=== PATIENT | male | born 1935 | race Caucasian/White ===

== ENCOUNTER 2016-07-09 10:42 | Emergency (ER) | payer MEDICARE, OTHER ==
[2016-07-09 11:36] LABS: #Basophils 0.1 thou/uL (0.0-0.2); #Lymphocytes 0.7 thou/uL (1.20-3.40); #Monocytes 0.6 thou/uL (0.11-0.59); #Neutrophils 7.8 thou/uL (1.40-6.50); %Basophils 0.6 % (0.0-1.0); %Eosinophils 0.2 % (0.0-10.0); %Lymphocytes 7.4 % (21.0-51.0); %Monocytes 6.7 % (0.0-10.0); Hematocrit 29.4 % (42.0-52.0); Red Blood Cell (RBC) Count 3.43 mill/uL (4.70-6.10); White Blood Cell (WBC) Count 9.2 thou/uL (4.8-10.8)
[2016-07-09 11:44] LABS: ALT (SGPT) 12 U/L (0-55); AST (SGOT) 11 U/L (5-34); Alkaline Phosphatase 57 U/L (40-150); Anion Gap 16 mmol/L (10-20); BUN (Urea Nitrogen) 52 mg/dL (8.4-25.7); Bilirubin, Total 0.6 mg/dL (0.2-1.2); Calc. Creatinine Clearance 0 mL/min (70-130); Calcium 8.7 mg/dL (7.8-10.44); Carbon Dioxide 24 mmol/L (23-31); Chloride 101 mmol/L (98-107); Estimated GFR-MDRD 16; Globulin 3.2 g/dL (2.4-3.5)
[2016-07-09 11:45] LABS: Troponin I 0.022 ng/mL (< 0.028)
--- NOTE | 2016-07-09 13:24 | CT ---
CT BRAIN WITHOUT CONTRAST: Date: 07/09/16 HISTORY: Right arm numbness since 4:00 this morning. COMPARISON: CT brain dated 04/21/10. FINDINGS: No acute territorial infarct or hemorrhage. No midline shift or mass effect. Bifrontal chronic white matter changes are similar to the comparison exam. No midline shift or mass effect. Calvarium is in tact. Mastoids are clear. IMPRESSION: No acute intracranial abnormality. POS: [facility]
--- NOTE | 2016-07-09 13:27 | RAD ---
AP VIEW OF CHEST: Date: 07/09/16 HISTORY: Right arm numbness since this morning. FINDINGS: Comparison made to previous exam from 02/06/14. AP view of chest demonstrates ectasia of the aorta. The lungs are well aerated. No evidence of activ e intrathoracic disease seen. No evidence of effusions, pneumonia, or pneumothorax seen. IMPRESSION: Unremarkable AP view of chest. POS: [facility]
== END 2016-07-09 12:56 | disposition short-term general hospital (02) ==
LOC: NAV ERS 10:42
DX: G45.9 Transient cerebral ischemic attack, unspecified (principal); I13.0 Hypertensive heart and chronic kidney disease with heart failure and stage 1 through stage 4 chronic kidney disease, or unspecified chronic kidney disease; N18.9 Chronic kidney disease, unspecified; I50.9 Heart failure, unspecified; I73.9 Peripheral vascular disease, unspecified; Z79.82 Long term (current) use of aspirin; Z79.899 Other long term (current) drug therapy
CPT/HCPCS: 70450; 71010; 80053; 82553; 84484; 85025; 93005

== ENCOUNTER 2017-04-19 23:07 | Emergency (ER) | payer MEDICARE, OTHER | END 2017-04-19 23:50 | disposition home or self-care (01) | LOC: NAV ERS 23:07 | DX: J20.9 Acute bronchitis, unspecified (principal); E03.9 Hypothyroidism, unspecified; E78.5 Hyperlipidemia, unspecified; Z86.73 Personal history of transient ischemic attack (TIA), and cerebral infarction without residual deficits; I25.2 Old myocardial infarction; I13.2 Hypertensive heart and chronic kidney disease with heart failure and with stage 5 chronic kidney disease, or end stage renal disease; I50.9 Heart failure, unspecified; N18.6 End stage renal disease; I73.9 Peripheral vascular disease, unspecified; Z79.82 Long term (current) use of aspirin; Z85.828 Personal history of other malignant neoplasm of skin; Z79.899 Other long term (current) drug therapy | CPT/HCPCS: J7620 ==

== ENCOUNTER 2017-11-29 17:06 | Emergency (ER) | payer MEDICARE, OTHER ==
[2017-11-29] MEDS ORDERED: Nitroglycerin 2% Ointment 1 INCH/1 GM Packet ONE (17:21)
[2017-11-29 17:40] LABS: #Basophils 0.1 thou/uL (0.0-0.2); #Eosinphils 0.2 thou/uL (0.0-0.7); #Lymphocytes 1.2 thou/uL (1.20-3.40); #Monocytes 0.7 thou/uL (0.11-0.59); #Neutrophils 7.1 thou/uL (1.40-6.50); %Basophils 0.7 % (0.0-1.0); %Eosinophils 1.9 % (0.0-10.0); %Lymphocytes 12.8 % (21.0-51.0); %Monocytes 7.1 % (0.0-10.0); %Neutrophils 77.6 % (42.0-75.0); Hemoglobin 11.8 g/dL (14.0-18.0); Mean Corpuscular HGB CONC 31.8 g/dL (32.0-36.0); Mean Corpuscular Hemoglobin 30.2 pg (27.0-31.0); Mean Corpuscular Volume 94.9 fL (78.0-98.0); Mean Platelet Volume 7.1 fL (7.4-10.4); Platelet Count 134 thou/uL (130-400); RBC Distribution Width 13.3 % (11.5-14.5); White Blood Cell (WBC) Count 9.2 thou/uL (4.8-10.8)
[2017-11-29 17:56] LABS: ALT (SGPT) 15 U/L (8-55); AST (SGOT) 13 U/L (5-34); Albumin 4.1 g/dL (3.4-4.8); Alkaline Phosphatase 71 U/L (40-150); Anion Gap 18 mmol/L (10-20); BUN (Urea Nitrogen) 40 mg/dL (8.4-25.7); Bilirubin, Total 0.5 mg/dL (0.2-1.2); CK (CPK) 59 U/L (30-200); Calc. Creatinine Clearance 0 mL/min (70-130); Calcium 8.7 mg/dL (7.8-10.44); Carbon Dioxide 20 mmol/L (23-31); Chloride 106 mmol/L (98-107); Estimated GFR-MDRD 16; Globulin 3.2 g/dL (2.4-3.5); Glucose 226 mg/dL (83-110); Lipase 46 U/L (8-78); Potassium 5.6 mmol/L (3.5-5.1); Protein, Total 7.3 g/dL (5.8-8.1); Sodium 138 mmol/L (136-145)
[2017-11-29 17:58] LABS: CKMB 1.5 ng/mL (0-6.6); Troponin I Less than 0.010 ng/mL (< 0.028)
--- NOTE | 2017-11-29 18:16 | RAD ---
SINGLE VIEW OF THE CHEST: 11/29/17 COMPARISON: 07/09/16 HISTORY: Chest pain. FINDINGS: Single view of the chest shows a normal sized cardiomediastinal silhouette. There is no evidence of c onsolidation, mass, or pleural effusion. The bones are unremarkable. IMPRESSION: No evidence of acute cardiopulmonary disease. POS: [facility]
[2017-11-29] MEDS ORDERED: Insulin Regular 300 UNITS/3 ML VIAL ONE (18:34)
== END 2017-11-29 18:55 | disposition short-term general hospital (02) ==
LOC: NAV ERS 17:06
DX: E87.5 Hyperkalemia (principal); E03.9 Hypothyroidism, unspecified; I13.0 Hypertensive heart and chronic kidney disease with heart failure and stage 1 through stage 4 chronic kidney disease, or unspecified chronic kidney disease; I50.9 Heart failure, unspecified; N18.3 Chronic kidney disease, stage 3 (moderate); I25.2 Old myocardial infarction; Z87.891 Personal history of nicotine dependence; Z79.899 Other long term (current) drug therapy; Z79.82 Long term (current) use of aspirin
CPT/HCPCS: 71045; 80053; 82550; 82553; 83690; 84484; 85025; 93005; 96374; J1815

== ENCOUNTER 2017-12-06 17:30 | Inpatient (IN) | payer MEDICARE, MEDICAID ==
[2017-12-06] MEDS ORDERED: Nitroglycerin 0.4 MG TAB (25 Tab Bottle) SL PRN (18:38)
[2017-12-06] MEDS: Carvedilol 3.125 MG TAB PO SCH (21:29)
[2017-12-06] MEDS: hydrALAZINE 25 MG TAB PO SCH (21:29)
[2017-12-06] MEDS: Atorvastatin Calcium 40 MG TAB PO SCH (21:29)
--- NOTE | 2017-12-07 01:02 | HP ---
CHIEF COMPLAINT: Weakness. HISTORY OF PRESENT ILLNESS: The patient is an 82-year-old male with a past medical history of [place], ischemic stroke, hypertension, hyperlipidemia, hypothyroidism, and chronic kidney disease who was initially admitted at [facility] in [place] for chest pain on 11/29/2017. The patient had normal cardiac enzymes and underwent stress testing, which showed no evidence of ischemia. On admission to the hospital, he was noted to have a creatinine of 3.73 and during the course of the hospitalization that trended upwards and peaked at 4.92. It has since been coming down. Nephrology was consulted and the decision was made to place an AV fistula on the patient's left wrist. This was done 2 days ago, but we are not starting dialysis at this time as the patient's renal function is improving. Nephrology wants the patient to follow up with them in approximately 1 week. During the course of the hospitalization , the patient also was noted to have several different arrhythmias and Cardiology was consulted, who recommended medical management with beta blockers. The patient became deconditioned while in the hospital and lives alone, and he did not feel that he will be able to take care of himself at his home at this time. He has been transferred to [place] for further rehabilitation before going home. Today, the patient denies any pain from his recent AV fistula surgery. The patient denies chest pain, shortness of breath, blurry vision; and is in good spirits. PAST MEDICAL HISTORY: 1. History of myocardial infarction. 2. Ischemic stroke 1 year ago. 3. CKD. 4. Hypertension. 5. Hyperlipidemia. 6. Hypothyroidism. PAST SURGICAL HISTORY: 1. Carotid endarterectomy. 2. Skin cancer surgery. 3. Orthopedic surgery on his right hand. 4. AV fistula placement on the left wrist. ALLERGIES: No known drug allergies. MEDICATIONS: 1. Nitroglycerin 0.4 mg sublingual q.5 minutes p.r.n. chest pain. 2. Aspirin 81 mg p.o. daily. 3. Lasix 20 mg p.o. daily. 4. Lipitor 40 mg p.o. at bedtime. 5. Levothyroxine 175 mcg p.o. q.a.m. 6. Hydralazine 100 mg p.o. b.i.d. 7. Carvedilol 3.125 mg p.o. b.i.d. SOCIAL HISTORY: The patient lives alone and is a nonsmoker, but has a history of former smoking and quit 10 years ago. FAMILY HISTORY: Mother of an [place]. REVIEW OF SYSTEMS: General: Negative for fever or chills. Eyes: Negative for vision changes or eye pain. ENT: Negative for nasal congestion, rhinorrhea, or sore throat. Cardiovascular: Negative for chest pain, palpitations, orthopnea, or PND. Respiratory: Negative for cough, shortness of breath, or wheezing. Gastrointestinal: Negative for nausea, vomiting, diarrhea, or constipation. Genitourinary: Negative for dysuria or polyuria. Musculoskeletal: Negative for joint pain or swelling. Extremities: Positive for lower extremity edema bilaterally. Skin: Negative for rashes or lesions. Psychiatric: Negative for anxiety or depression. Neurologic: Negative for syncope, seizure, or tingling: PHYSICAL EXAMINATION: VITAL SIGNS: Temperature 98, pulse 65, respiratory rate 18, O2 sat 97% on room air, blood pressure 129/95. GENERAL: The patient is awake, alert, oriented, in no acute distress. HEENT: Pupils are equal, round, and reactive to light and accommodation. Extraocular muscles intact. Nasopharynx and oropharynx are within normal limits and without exudate. NECK: Supple without lymphadenopathy, thyromegaly, or bruits. CARDIOVASCULAR: Regular rate and rhythm without 2/6 systolic murmur, no gallops , or rubs. LUNGS: Clear to auscultation bilaterally without wheezing or rhonchi. ABDOMEN: Soft, nontender, nondistended with bowel sounds present. EXTREMITIES: There is 1+ pitting edema in bilateral lower extremities, but no clubbing or cyanosis noted. SKIN: The patient has a healing incision from his AV graft near the left wrist that has minimal erythema, no warmth, and no tenderness. NEUROLOGIC: Cranial nerves II through XII are grossly intact. Deep tendon reflexes 2/4. Sensation is within normal limits. PSYCHIATRIC: The patient displays an appropriate mood and affect during exam. LABORATORY DATA: 1. BMP from today shows sodium of 140, potassium 4.2, chloride 111, bicarbonate 18, BUN 79, creatinine 3.48, glucose 95, calcium 8. 2. CBC: WBC 6.7, hemoglobin 10.6, hematocrit 31.8, platelet count 109. ASSESSMENT AND PLAN: 1. Generalized deconditioning: The patient will have PT and OT evaluation tomorrow and will begin working with therapy to improve strength with a goal of him going home, likely needing home health. 2. Chronic kidney disease, stage 4: The patient's creatinine has been trending downwards. We will recheck a BMP tomorrow. We are trying to limit nephrotoxic agents. The patient will be following up with Nephrology in 1 week. 3. Hypertension: We will continue carvedilol and hydralazine. We will try to hold his lisinopril and see how his blood pressure responds. 4. History of arrhythmia: The patient is on a beta-madeline and will need outpatient followup with Cardiology once discharged from the hospital. 5. Hyperlipidemia: Continue statin. 6. Hypothyroidism. Continue thyroid supplementation. 7. Gastrointestinal prophylaxis with ranitidine. 8. Deep venous thrombosis prophylaxis with FRANCISCO hose. We are avoiding pharmacological deep venous thrombosis prophylaxis due to renal function. MTDD
[2017-12-07] MEDS: Levothyroxine Sodium 50 MCG TAB PO SCH (05:28)
[2017-12-07 05:49] LABS: Anion Gap 14 mmol/L (10-20); BUN (Urea Nitrogen) 77 mg/dL (8.4-25.7); Calc. Creatinine Clearance 24 mL/min (70-130); Calcium 8.2 mg/dL (7.8-10.44); Carbon Dioxide 19 mmol/L (23-31); Chloride 111 mmol/L (98-107); Estimated GFR-MDRD 17; Glucose 100 mg/dL (83-110); Potassium 4.3 mmol/L (3.5-5.1); Sodium 140 mmol/L (136-145)
[2017-12-07] MEDS: Carvedilol 3.125 MG TAB PO SCH ×2 (09:20→21:10)
[2017-12-07] MEDS: Famotidine 20 MG TAB PO SCH (09:20)
[2017-12-07] MEDS: hydrALAZINE 25 MG TAB PO SCH ×2 (09:21→21:10)
--- NOTE | 2017-12-07 10:02 | PRG ---
DATE OF SERVICE: 12/07/2017 CHIEF COMPLAINT: Leg cramps. SUBJECTIVE: The patient is an 82-year-old male with a past medical history of chronic kidn ey disease stage 4, hypertension, hyperlipidemia, hypothyroidism, who is at [facility] for hiren abilitation following a week long hospital stay. The patient was admitted overnight and has not yet been evaluated by physical therapy. The patient does note that he woke up around 3:00 with calf cram ping pain in his legs, but it has subsided this morning. OBJECTIVE: VITAL SIGNS: Temperature 97.9, pulse 83, respiration rate 20, O2 sat 98% on room air, blood pressure 139/63. GENERAL: The patient is awake, alert, and oriented, in no acute distress. CARDIOVASCULAR: Regular rate and rhythm with a 2/6 systolic murmur. LUNGS: Clear to auscultation bilaterally without wheezing or rhonchi. ABDOMEN: Soft, nontender to palpation with bowel sounds present in 4 quadrants. EXTREMITIES: There is no clubbing, but the patient does have 1+ edema in lower extremities, but it d oes look improved from last night. LABORATORY: BMP: Sodium 140, potassium 4.3, chloride 111, bicarbonate 19, BUN 77, creatinine 3.40, glucose 100, calcium 8.2. ASSESSMENT AND PLAN: 1. Generalized deconditioning and muscle weakness: The patient will be evaluated by physical and oc cupational therapy today. He needs to regain some strength before he is safe to go home as he does l bruce alone. 2. Chronic kidney disease stage 4. Creatinine is slightly improved from yesterday. I have asked [facility] nursing staff to try to arrange the 1 week follow up with Dr. Mitchell. The patient is a very hard sti ck and we will check labs periodically, but he does not need daily labs at this point. 3. Hypertension: The patient's blood pressure is stable. He does not need his GABE inhibitor restar pam at this point. 4. Hypothyroidism: Continue thyroid supplementation. 5. Lower extremity edema: At this point, the patient's swelling is improved from yesterday. We hayden l hold off on giving Lasix at this time.
[2017-12-07] MEDS: Atorvastatin Calcium 40 MG TAB PO SCH (21:10)
[2017-12-08] MEDS: Levothyroxine Sodium 50 MCG TAB PO SCH (06:13)
[2017-12-08] MEDS: Famotidine 20 MG TAB PO SCH (09:11)
[2017-12-08] MEDS: Carvedilol 3.125 MG TAB PO SCH (09:11)
[2017-12-08] MEDS: hydrALAZINE 25 MG TAB PO SCH ×2 (09:11→20:08)
[2017-12-08] MEDS ORDERED: Carvedilol 3.125 MG TAB PO SCH (12:29)
--- NOTE | 2017-12-08 12:43 | PRG ---
DATE OF SERVICE: 12/08/2017 SUBJECTIVE: The patient is awake, alert and is sitting in a chair. He states that he slept well las t night, but he is still a little bit tired this morning. Nursing noted that he had some constipatio n, which has improved with prune juice. The patient thinks his lower extremity edema might be a steven le bit worse this morning. OBJECTIVE: VITAL SIGNS: Temperature 97.8, pulse 61, respiration rate 20, O2 sat 97% on room air, blood pressure 163/65. GENERAL: The patient is awake, alert and oriented, in no acute distress. CARDIOVASCULAR: Regular rate and rhythm with a 2/6 systolic murmur. LUNGS: Clear to auscultation bilaterally without wheezing or rhonchi. ABDOMEN: Soft, nontender, nondistended with bowel sounds present. EXTREMITIES: There is 2+ pitting edema in bilateral lower extremities. PSYCHIATRIC: The patient displays appropriate mood and affect. ASSESSMENT AND PLAN: 1. Deconditioning: The patient has been able to walk around the nurses' station and states he has b een doing some weights with his upper extremities. He will continue therapy services. 2. Chronic kidney disease stage IV: This is stable. We are trying to limit nephrotoxic agents as m uch as possible. 3. Hypertension. We will increase the patient's carvedilol as he has been hypertensive in the past 24 hours. 4. Lower extremity edema. 5. We will give a dose of p.o. Lasix today as his lower extremity edema has worsened. 6. Hypothyroidism. Continue thyroid supplementation.
[2017-12-08] MEDS ORDERED: Carvedilol 6.25 MG TAB PO SCH (13:00)
[2017-12-08] MEDS: Zinc Oxide 16% Ointment 60 gm Tube TOP PRN (13:25)
[2017-12-08] MEDS ORDERED: Furosemide 40 MG TAB PO SCH (14:00)
[2017-12-08] MEDS: Atorvastatin Calcium 40 MG TAB PO SCH (20:09)
[2017-12-08] MEDS: Carvedilol 6.25 MG TAB PO SCH (20:09)
[2017-12-09] MEDS: Levothyroxine Sodium 50 MCG TAB PO SCH (06:18)
[2017-12-09] MEDS: hydrALAZINE 25 MG TAB PO SCH ×2 (09:47→20:21)
[2017-12-09] MEDS: Carvedilol 6.25 MG TAB PO SCH ×2 (09:48→20:21)
[2017-12-09] MEDS: Famotidine 20 MG TAB PO SCH (09:48)
[2017-12-09] MEDS: Atorvastatin Calcium 40 MG TAB PO SCH (20:21)
[2017-12-10] MEDS: Acetaminophen 325 MG TAB PO PRN ×2 (01:57→20:00)
[2017-12-10] MEDS: Levothyroxine Sodium 50 MCG TAB PO SCH (06:20)
[2017-12-10] MEDS: hydrALAZINE 25 MG TAB PO SCH ×2 (08:50→20:00)
[2017-12-10] MEDS: Famotidine 20 MG TAB PO SCH (08:50)
[2017-12-10] MEDS: Carvedilol 6.25 MG TAB PO SCH ×2 (08:50→20:00)
[2017-12-10 11:05] VITALS: BMI 32.2
[2017-12-10] MEDS: Atorvastatin Calcium 40 MG TAB PO SCH (20:00)
[2017-12-11] MEDS: Levothyroxine Sodium 50 MCG TAB PO SCH (05:53)
[2017-12-11] MEDS: hydrALAZINE 25 MG TAB PO SCH ×2 (09:08→20:12)
[2017-12-11] MEDS: Famotidine 20 MG TAB PO SCH (09:09)
[2017-12-11] MEDS: Carvedilol 6.25 MG TAB PO SCH ×2 (09:10→20:12)
[2017-12-11] MEDS: Loratadine 10 MG TAB PO PRN (11:57)
--- NOTE | 2017-12-11 17:08 | PRG ---
DATE OF SERVICE: 12/11/2017 SUBJECTIVE: The patient is an 82-year-old male who is undergoing rehabilitation at [facility]. The patient continues to have lower extremity edema and wore some FRANCISCO hose over the weekend, bu t they were removed because they were cutting into his skin. The patient also was noted to have a co ugh productive of clear sputum this morning and increased nasal congestion. OBJECTIVE: VITAL SIGNS: Temperature 97.9, pulse 58, respiration rate 18, O2 sat 97% on room air, blood pressure 165/73. GENERAL: The patient is awake, alert and oriented, in no acute distress. CARDIOVASCULAR: Regular rate and rhythm with a 2/6 systolic murmur. ABDOMEN: Soft, nontender, nondistended with bowel sounds present. EXTREMITIES: There is no clubbing, cyanosis. The patient has 1-2+ pitting edema in bilateral lower extremities and chronic venous stasis changes bilaterally. PSYCHIATRIC: The patient displays an appropriate mood and affect during the exam. ASSESSMENT AND PLAN: 1. Generalized deconditioning: The patient has been up walking with a walker and will continue ther apy to improve his strength. 2. Chronic kidney disease stage 4: We will order a BMP for tomorrow morning to monitor kidney funct ion. We are trying to limit nephrotoxic agents as needed, but he is requiring doses of Lasix. 3. Hypertension: We will adjust his blood pressure medications to get better control of his blood p ressure. 4. Lower extremity edema: We will repeat Lasix doses. 5. Allergic rhinitis: We will add Claritin and Mucinex as needed for congestion. 6. Hypothyroidism: Continue thyroid supplementation.
[2017-12-11 19:00] LABS: Anion Gap 18 mmol/L (10-20); BUN (Urea Nitrogen) 67 mg/dL (8.4-25.7); Calc. Creatinine Clearance 31 mL/min (70-130); Calcium 8.1 mg/dL (7.8-10.44); Carbon Dioxide 17 mmol/L (23-31); Chloride 111 mmol/L (98-107); Estimated GFR-MDRD 22; Glucose 121 mg/dL (83-110); Potassium 4.7 mmol/L (3.5-5.1); Sodium 141 mmol/L (136-145)
[2017-12-11] MEDS: Acetaminophen 325 MG TAB PO PRN (20:12)
[2017-12-11] MEDS: Atorvastatin Calcium 40 MG TAB PO SCH (20:13)
[2017-12-11] MEDS: cloNIDine 0.1 MG TAB PO SCH (20:13)
[2017-12-12] MEDS: Levothyroxine Sodium 50 MCG TAB PO SCH (05:56)
[2017-12-12] MEDS ORDERED: Furosemide 20 MG TAB PO SCH (07:30)
[2017-12-12] MEDS: hydrALAZINE 25 MG TAB PO SCH ×2 (09:00→21:41)
[2017-12-12] MEDS: Famotidine 20 MG TAB PO SCH (09:04)
[2017-12-12] MEDS: cloNIDine 0.1 MG TAB PO SCH ×2 (09:04→21:42)
[2017-12-12] MEDS: Carvedilol 6.25 MG TAB PO SCH ×2 (09:04→21:41)
--- NOTE | 2017-12-12 10:07 | PRG ---
DATE OF SERVICE: 12/12/2017 SUBJECTIVE: The patient is an 82-year-old male who is at [facility] for [facility]. The nurse states that the patient has had some coughing episodes in the past 24 hours. She german d they have even lead to emesis when he coughs so much. The cough is productive of clear sputum and the patient notes that he has had a cough like this for a long time. OBJECTIVE: VITAL SIGNS: Temperature 98.0, pulse 58, respiration rate 20, blood pressure 165/73. GENERAL: The patient is awake, alert, and oriented, in no acute distress. CARDIOVASCULAR: Patient has regular rate and rhythm with a 2/6 systolic murmur, no gallops or rubs. LUNGS: Clear to auscultation bilaterally without wheezing or rhonchi. ABDOMEN: Soft, nontender, nondistended. Bowel sounds present. EXTREMITIES: There is 1+ pitting edema bilaterally, but this is improved from yesterday. LABORATORY: BMP: Sodium 141, potassium 4.7, chloride 111, bicarbonate 17, BUN 67, creatinine 2.75, glucose 121, calcium 8.1. ASSESSMENT AND PLAN: 1. Generalized deconditioning: The patient is doing well, walking with a walker around the hallways in the hospital. We will touch base with therapy staff to figure out when they think that he might be good to go home. 2. Hypertension: Blood pressure is little bit improved this morning since starting clonidine last n ight. We will continue to monitor his blood pressure and adjust as needed. 3. Chronic kidney disease 4: Creatinine has improved. He is getting a dose of Lasix this morning, but we are trying to limit nephrotoxic agents as much as possible. 4. Lower extremity edema: Patient's lower extremity edema is improved this morning after propping h is legs up overnight. 5. Constipation is improved with prune juice.
[2017-12-12] MEDS: Atorvastatin Calcium 40 MG TAB PO SCH (21:42)
[2017-12-13] MEDS: Levothyroxine Sodium 50 MCG TAB PO SCH (07:14)
[2017-12-13] MEDS: Carvedilol 6.25 MG TAB PO SCH ×2 (08:07→21:19)
[2017-12-13] MEDS: Famotidine 20 MG TAB PO SCH (08:09)
[2017-12-13] MEDS: cloNIDine 0.1 MG TAB PO SCH ×2 (08:09→21:19)
[2017-12-13] MEDS: hydrALAZINE 25 MG TAB PO SCH ×2 (08:11→21:19)
[2017-12-13] MEDS: Acetaminophen 325 MG TAB PO PRN (16:51)
[2017-12-13] MEDS ORDERED: Polyethylene Glycol 3350 17 GM Packet PO PRN (17:40)
--- NOTE | 2017-12-13 19:39 | PRG ---
DATE OF SERVICE: 12/13/2017 SUBJECTIVE: The patient is an 82-year-old male, who is here at [facility] for rehabilitation. Today, the patient complains of constipation and states that prune juice is not helping in the past 2 days. He also complains of some shortness of breath when he is ambulating. OBJECTIVE: VITAL SIGNS: Temperature 97.5, pulse 55, respiration rate 16, O2 sat 99% on room air, and blood pressure 139/65. GENERAL: The patient is awake, alert, and oriented, in no acute distress, sitting up on the side of his bed, eating dinner. LUNGS: Clear to auscultation bilaterally without wheezing or rhonchi or rales with normal respiratory effort. HEART: Regular rate and rhythm with 2/6 systolic murmur. ABDOMEN: Soft, nontender, nondistended with bowel sounds present. EXTREMITIES: The patient has 1+ lower extremity pitting edema and chronic venous stasis changes. PSYCHIATRIC: The patient displays appropriate mood and affect. ASSESSMENT AND PLAN: 1. Generalized deconditioning: Continue therapy. He is ambulating with a walker and has walked outside some. He still needs to work on stairs. 2. Chronic kidney disease, 4: Creatinine is stable. We will try to limit nephrotoxic agents. 3. Constipation: We will add MiraLax and monitor for efficacy. 4. Hypertension. Blood pressure is improved since adding clonidine. 5. Hypothyroidism. Continue Synthroid. MTDD
[2017-12-13] MEDS: Atorvastatin Calcium 40 MG TAB PO SCH (21:19)
[2017-12-14] MEDS: Levothyroxine Sodium 50 MCG TAB PO SCH (05:45)
[2017-12-14] MEDS: Famotidine 20 MG TAB PO SCH (08:40)
[2017-12-14] MEDS: hydrALAZINE 25 MG TAB PO SCH ×2 (08:41→21:29)
[2017-12-14] MEDS: cloNIDine 0.1 MG TAB PO SCH ×2 (08:41→21:29)
[2017-12-14] MEDS: Carvedilol 6.25 MG TAB PO SCH ×2 (08:41→21:29)
--- NOTE | 2017-12-14 15:28 | PRG ---
DATE OF SERVICE: 12/14/2017 SUBJECTIVE: The patient is an 82-year-old male who is undergoing physical and occupational therapy at [facility]. The patient states that he was able to have a bowel movement and his stomach is feeling better. He noted some pain in his toe overnight which is completely resolved and he states his breathing is better this morning. OBJECTIVE: VITAL SIGNS: Temperature 98.0, pulse 56, respiration rate 20, O2 sat 98% on room air, blood pressure 112/55. GENERAL: The patient is awake, alert, and oriented and in no acute distress. CARDIOVASCULAR: Regular rate and rhythm with a 2/6 systolic murmur. LUNGS: Clear to auscultation bilaterally without wheezing or rhonchi. ABDOMEN: Soft, nontender, nondistended with bowel sounds present. EXTREMITIES: Patient has 1+ pitting edema and chronic venous stasis changes in lower extremities. PSYCHIATRIC: The patient displays an appropriate mood and affect. ASSESSMENT AND PLAN: 1. Generalized deconditioning. The patient will continue physical therapy. He is still having some issues with balance and the goal is to try to get him walking without needing a walker before going home. 2. Chronic kidney disease stage III: We will repeat a creatinine tomorrow morning. 3. Constipation: Improved with prune juice and he does have MiraLax as needed. 4. Hypertension: Blood pressure is much improved with the addition of clonidine. We will continue to monitor and adjust as needed. 5. Hypothyroidism: Continue Synthroid. 6. Deep venous thrombosis prophylaxis: The patient is unable to take pharmacologic prophylaxis due to his kidney disease. The FRANCISCO hose and SCDs were not an option due to his lower extremity edema and they were cutting into his skin.
[2017-12-14] MEDS: Acetaminophen 325 MG TAB PO PRN (19:01)
[2017-12-14] MEDS: Atorvastatin Calcium 40 MG TAB PO SCH (21:29)
[2017-12-15 05:32] LABS: Anion Gap 16 mmol/L (10-20); BUN (Urea Nitrogen) 72 mg/dL (8.4-25.7); Calc. Creatinine Clearance 26 mL/min (70-130); Carbon Dioxide 18 mmol/L (23-31); Chloride 111 mmol/L (98-107); Estimated GFR-MDRD 19; Glucose 101 mg/dL (83-110); Potassium 4.3 mmol/L (3.5-5.1); Sodium 141 mmol/L (136-145)
[2017-12-15] MEDS: Levothyroxine Sodium 50 MCG TAB PO SCH (06:12)
[2017-12-15] MEDS: Carvedilol 6.25 MG TAB PO SCH ×2 (08:43→21:33)
[2017-12-15] MEDS: Famotidine 20 MG TAB PO SCH (08:43)
[2017-12-15] MEDS: cloNIDine 0.1 MG TAB PO SCH ×2 (08:44→21:33)
[2017-12-15] MEDS: hydrALAZINE 25 MG TAB PO SCH ×2 (08:45→21:33)
--- NOTE | 2017-12-15 10:12 | PRG ---
DATE OF SERVICE: 12/15/2017 SUBJECTIVE: The patient is an 82-year-old male with a past medical history of chronic kidn ey disease stage 4 who was at [facility] for rehabilitation. He has had some complaints of pa in around his toes and has thickened toenails. OBJECTIVE: VITAL SIGNS: Temperature 97.8, pulse 54, respiration rate 20, O2 sat 99% on room air, blood pressure 139/66. GENERAL: The patient is awake, alert, and oriented, in no acute distress. CARDIOVASCULAR: Regular rate and rhythm with a 2/6 systolic murmur. LUNGS: Clear to auscultation bilaterally without wheezing or rhonchi. ABDOMEN: Soft, nontender, nondistended with bowel sounds present in 4 quadrants. EXTREMITIES: The patient has 1+ lower extremity pitting edema, which is at his baseline with chronic venous stasis changes noted. PSYCHIATRIC: The patient displays an appropriate mood and affect. SKIN: The patient's AV graft incision site is well healed. LABORATORY DATA: BMP: Sodium 141, potassium 4.3, chloride 111, bicarbonate 18, BUN 72, creatinine 3 .19, glucose 101, calcium 8.0. ASSESSMENT AND PLAN: 1. Generalized deconditioning: The patient is doing well with therapy and is still working on his [employer]. He is walking with a walker and hopes to be able to go home in the next 1-2 weeks. 2. Chronic kidney disease stage 4: The patient's creatinine has increased from 2.75-3.19, but the 3 .19 is around his baseline. We are trying to limit nephrotoxic agents as much as possible. He has a followup appointment set with Dr. Mitchell on 12/21/2017. We will repeat a BMP next week to have a new reading before he goes for that appointment. 3. Hypertension: The patient's blood pressure has been well controlled with the addition of clonidi ne. 4. Hypothyroidism: Continue thyroid supplementation. 5. Mycotic toenails: Nursing has placed a referral for Podiatry, so that we can get the patient's t oenails trimmed and evaluate for any infection. 6. Deep venous thrombosis prophylaxis: We are avoiding pharmacologic prophylaxis due to the patient 's renal disease. The patient's lower extremity edema has been preventing him from wearing FRANCISCO hose and sequential compression devices.
[2017-12-15] MEDS: Atorvastatin Calcium 40 MG TAB PO SCH (21:34)
[2017-12-16] MEDS: Levothyroxine Sodium 50 MCG TAB PO SCH (05:02)
[2017-12-16] MEDS: hydrALAZINE 25 MG TAB PO SCH ×2 (08:58→21:24)
[2017-12-16] MEDS: Famotidine 20 MG TAB PO SCH (08:59)
[2017-12-16] MEDS: cloNIDine 0.1 MG TAB PO SCH ×2 (09:00→21:24)
[2017-12-16] MEDS: Carvedilol 6.25 MG TAB PO SCH ×2 (09:01→21:24)
[2017-12-16] MEDS: Loratadine 10 MG TAB PO PRN (09:02)
[2017-12-16] MEDS: Acetaminophen 325 MG TAB PO PRN (10:35)
[2017-12-16] MEDS: Zinc Oxide 16% Ointment 60 gm Tube TOP PRN (14:30)
[2017-12-16] MEDS: Atorvastatin Calcium 40 MG TAB PO SCH (21:25)
[2017-12-17] MEDS: Levothyroxine Sodium 50 MCG TAB PO SCH (05:27)
[2017-12-17] MEDS: Acetaminophen 325 MG TAB PO PRN (09:09)
[2017-12-17] MEDS: Famotidine 20 MG TAB PO SCH (09:10)
[2017-12-17] MEDS: Carvedilol 6.25 MG TAB PO SCH ×2 (09:10→21:29)
[2017-12-17] MEDS: cloNIDine 0.1 MG TAB PO SCH ×2 (09:10→21:29)
[2017-12-17] MEDS: hydrALAZINE 25 MG TAB PO SCH ×2 (09:10→21:28)
[2017-12-17] MEDS: Atorvastatin Calcium 40 MG TAB PO SCH (21:28)
[2017-12-18] MEDS: Levothyroxine Sodium 50 MCG TAB PO SCH (06:17)
[2017-12-18] MEDS: Carvedilol 6.25 MG TAB PO SCH ×2 (08:44→21:30)
[2017-12-18] MEDS: hydrALAZINE 25 MG TAB PO SCH ×2 (08:44→21:30)
[2017-12-18] MEDS: cloNIDine 0.1 MG TAB PO SCH ×2 (08:44→21:30)
[2017-12-18] MEDS: Famotidine 20 MG TAB PO SCH (08:46)
--- NOTE | 2017-12-18 13:06 | PRG ---
DATE OF SERVICE: 12/18/2017 SUBJECTIVE: The patient is an 82-year-old male who is undergoing rehabilitation at [facility]. The patient states he had a good weekend and that his breathing is improved. He is still having intermittent problems with constipation, but notes that he did have a small bowel moveme nt this morning. OBJECTIVE: VITAL SIGNS: Temperature 97.9, pulse 52, respiration rate 18, O2 saturation 98% on room air, blood p ressure 124/57. GENERAL: The patient is awake, alert, and oriented, in no acute distress and was seen while sitting up in a chair in his room. LUNGS: Clear to auscultation bilaterally without wheezing or rhonchi. ABDOMEN: Soft, nontender and nondistended with bowel sounds present. CARDIOVASCULAR: Regular rate and rhythm with 2/6 systolic murmur. EXTREMITIES: There is no clubbing. The patient does have 1+ pitting edema in bilateral lower extrem ities with chronic venous stasis changes. PSYCHIATRIC: Patient displays an appropriate mood and affect. ASSESSMENT AND PLAN: 1. Generalized deconditioning: The patient was able to ambulate around the nurses' station and had physical therapy notes that he had to sit down for a brief period of time once. We are working towar ds possible discharge next week, but patient will likely need home health. 2. Chronic kidney disease stage 4: We will recheck BMP tomorrow morning and patient has follow up w mary Mitchell later this week. The patient's AV fistula incision is well healed. 3. Hypertension: Patient's blood pressure is stable and no adjustments to medications as needed. 4. Hypothyroidism. Continue thyroid supplementation. 5. Deep venous thrombosis prophylaxis: Patient's renal disease is prohibiting pharmacologic prophyl axis and his lower extremity edema is not allowing for him to wear FRANCISCO hose or devices.
[2017-12-18] MEDS: Atorvastatin Calcium 40 MG TAB PO SCH (21:30)
[2017-12-19] MEDS: Levothyroxine Sodium 50 MCG TAB PO SCH (05:15)
[2017-12-19 06:02] LABS: Band 1 % (5-11); Hemoglobin 9.2 g/dL (14.0-18.0); Lymphocytes 11 % (21-51); MDiff Complete? YES; Mean Corpuscular HGB CONC 31.4 g/dL (32.0-36.0); Mean Corpuscular Hemoglobin 30.4 pg (27.0-31.0); Mean Corpuscular Volume 96.9 fL (78.0-98.0); Mean Platelet Volume 10.1 fL (7.4-10.4); Monocytes 5 % (0-10); Neutrophil 83 % (42-75); PLT Morphology Comment Appears Decreased; Platelet Count 109 thou/uL (130-400); RBC Distribution Width 14.3 % (11.5-14.5); RBC Morphology Normal; Red Blood Cell (RBC) Count 3.02 mill/uL (4.70-6.10); White Blood Cell (WBC) Count 7.4 thou/uL (4.8-10.8)
[2017-12-19 06:04] LABS: Anion Gap 14 mmol/L (10-20); BUN (Urea Nitrogen) 67 mg/dL (8.4-25.7); Calc. Creatinine Clearance 28 mL/min (70-130); Calcium 8.1 mg/dL (7.8-10.44); Carbon Dioxide 19 mmol/L (23-31); Chloride 111 mmol/L (98-107); Estimated GFR-MDRD 20; Glucose 92 mg/dL (83-110); Potassium 4.6 mmol/L (3.5-5.1); Sodium 139 mmol/L (136-145)
[2017-12-19] MEDS: hydrALAZINE 25 MG TAB PO SCH ×2 (08:58→21:16)
[2017-12-19] MEDS: cloNIDine 0.1 MG TAB PO SCH ×2 (08:58→21:14)
[2017-12-19] MEDS: Carvedilol 6.25 MG TAB PO SCH ×2 (09:00→18:40)
[2017-12-19] MEDS: Famotidine 20 MG TAB PO SCH (09:00)
--- NOTE | 2017-12-19 09:18 | PRG ---
DATE OF SERVICE: 12/19/2017 SUBJECTIVE: The patient is an 82-year-old male who is at [facility] for [facility]. The patient states he is feeling better each day. He still is a little bit wobbly when he is t rying to walk, but otherwise has no complaints. OBJECTIVE: VITAL SIGNS: Temperature 97.6, pulse 53, respiration rate 20, O2 sat 98% on room air, blood pressure 140/65. GENERAL: The patient is awake, alert, and oriented, in no acute distress. CARDIOVASCULAR: Regular rate and rhythm with a 2/6 systolic murmur. LUNGS: Clear to auscultation bilaterally without wheezing or rhonchi. ABDOMEN: Soft, nontender with bowel sounds present. EXTREMITIES: The patient has 1+ edema bilaterally, but this does appear to be improved from yesterda y. SKIN: The patient's toenails are thickened and elongated. PSYCHIATRIC: The patient displays appropriate mood and affect. LABORATORY DATA: 1. CBC: WBC is 7.4, hemoglobin 9.2, hematocrit 29.3, platelet count 109. 2. BMP: Sodium 139, potassium 4.6, chloride 111, bicarbonate 19, BUN 67, creatinine 2.98, glucose 9 2, calcium 8.1. ASSESSMENT AND PLAN: 1. Generalized deconditioning: The patient will continue therapy services. We are going to try to plan for possible discharge in 1 week. I have spoken with the social services to help arrange for home health once he goes home. 2. Chronic kidney disease stage IV: The patient's creatinine has decreased a little bit from last w [facility] reading. The patient has a follow up with Dr. Mitchell in 2 days. 3. Hypertension: The patient's blood pressure is stable. No changes to medications are needed at t his time. 4. Chronic anemia: This is likely secondary to chronic kidney disease. We will continue to monitor his blood counts periodically, but he has no signs of acute blood loss. 5. Hypothyroidism: Continue thyroid supplementation. 6. Deep venous thrombosis prophylaxis: Again, we are holding pharmacologic prophylaxis due to his c hronic kidney disease and his lower extremity edema prevents him from having FRANCISCO hose or sequential c ompression devices.
[2017-12-19] MEDS: Acetaminophen 325 MG TAB PO PRN (14:48)
[2017-12-19] MEDS: Atorvastatin Calcium 40 MG TAB PO SCH (21:16)
[2017-12-20] MEDS: Levothyroxine Sodium 50 MCG TAB PO SCH (06:03)
[2017-12-20] MEDS: hydrALAZINE 25 MG TAB PO SCH ×2 (08:35→21:23)
[2017-12-20] MEDS: Famotidine 20 MG TAB PO SCH (08:36)
[2017-12-20] MEDS: Carvedilol 6.25 MG TAB PO SCH ×2 (08:36→17:09)
[2017-12-20] MEDS: cloNIDine 0.1 MG TAB PO SCH ×2 (08:37→21:22)
[2017-12-20] MEDS ORDERED: cloNIDine 0.1 MG TAB ONE (21:17)
[2017-12-20] MEDS: Atorvastatin Calcium 40 MG TAB PO SCH (21:21)
--- NOTE | 2017-12-21 00:35 | PRG ---
DATE OF SERVICE: 12/20/2017 TIME OF VISIT: 12:30 p.m. SUBJECTIVE: The patient is an 82-year-old male who is at [facility] for rehabilitat ion and chronic kidney disease. The patient is feeling well this morning. He has a Nephrology appoi ntment that was scheduled for tomorrow, has been rescheduled for next week. He is starting to ambula te with a cane. OBJECTIVE: VITAL SIGNS: Temperature 98.4, pulse 57, respiration rate 18, O2 saturation 98% on room air, blood p ressure 142/64. GENERAL: The patient is awake, alert, and oriented, in no acute distress. CARDIOVASCULAR: Regular rate and rhythm without 2/6 systolic murmur. LUNGS: Clear to auscultation bilaterally without wheezing or rhonchi. ABDOMEN: Soft, nontender with bowel sounds present. EXTREMITIES: There is no clubbing. Patient has 1+ pitting edema in bilateral lower extremities. PSYCHIATRIC: Patient displays appropriate mood and affect. PLAN: 1. Generalized deconditioning: The patient's strength and stamina is improving but is continuing to work on balance and ambulating with cane. We are tentatively planning on him going home next week i f everything works out. 2. Hypertension: Patient's blood pressure is fairly well controlled for his age. We will continue to monitor and adjust medications as needed. 3. Chronic kidney disease stage 4: His renal function was stabilized for now. His AV graft site is well healed. He will follow up with Nephrology next week. 4. Hypothyroidism: Continue thyroid supplementation. 5. Social: Patient is concerned about having no pallor when he goes home, as he does not have any f amily or friends in this area to bring him, his bills. We will try to contact his [employer] i n the left and noted that he has been in the hospital and will be discharged next week.
[2017-12-21] MEDS: Levothyroxine Sodium 50 MCG TAB PO SCH (06:06)
[2017-12-21] MEDS: cloNIDine 0.1 MG TAB PO SCH ×2 (09:31→21:01)
[2017-12-21] MEDS: Famotidine 20 MG TAB PO SCH (09:32)
[2017-12-21] MEDS: Carvedilol 6.25 MG TAB PO SCH ×2 (09:32→17:44)
[2017-12-21] MEDS: hydrALAZINE 25 MG TAB PO SCH ×2 (09:35→20:48)
--- NOTE | 2017-12-21 11:44 | PRG ---
DATE OF SERVICE: 12/21/2017 SUBJECTIVE: The patient is an 82-year-old male with a past medical history of hypertension and chronic kidney disease stage 4 who is at [facility] for rehabilitation. The patient was feeling well this morning. He is ambulating with a cane in preparation for discharge early next week . OBJECTIVE: VITAL SIGNS: Temperature 99.2, pulse 53, respiration rate 20, O2 sat 97% on room air, blood pressure 124/56. GENERAL: The patient is awake, alert, and oriented, in no acute distress. CARDIOVASCULAR: Regular rate and rhythm with a 2/6 systolic murmur. LUNGS: Clear to auscultation bilaterally without wheezing or rhonchi. ABDOMEN: Soft, nontender and nondistended. EXTREMITIES: There is no clubbing. The patient does have chronic venous stasis changes and 1+ pitti ng edema bilaterally. PSYCHIATRIC: The patient displays an appropriate mood and affect. ASSESSMENT AND PLAN: 1. Generalized deconditioning: The patient is doing well with therapy and is now using a cane prima rily. We are working towards discharge early next week. 2. Chronic kidney disease stage 4: Last creatinine was 2.98. His follow up with Nephrology was mov ed to next and the patient will be able to drive himself to that appointment. 3. Hypertension: The patient's blood pressure is improved this morning. No change to current medic ations. 4. Hypothyroidism: Continue thyroid supplementation. 5. Constipation, improved.
[2017-12-21] MEDS: Atorvastatin Calcium 40 MG TAB PO SCH (20:45)
[2017-12-22] MEDS: Levothyroxine Sodium 50 MCG TAB PO SCH (06:31)
[2017-12-22] MEDS: Loratadine 10 MG TAB PO PRN (08:44)
[2017-12-22] MEDS: Famotidine 20 MG TAB PO SCH (08:45)
[2017-12-22] MEDS: cloNIDine 0.1 MG TAB PO SCH ×2 (08:45→20:19)
[2017-12-22] MEDS: hydrALAZINE 25 MG TAB PO SCH ×2 (08:46→20:19)
[2017-12-22] MEDS: Carvedilol 6.25 MG TAB PO SCH ×2 (08:46→17:55)
--- NOTE | 2017-12-22 11:15 | PRG ---
DATE OF SERVICE: 12/22/2017 SUBJECTIVE: The patient is an 82-year-old male with a past medical history of hypertension and chronic kidney disease stage 4, who is at [facility] for rehabilitation. He has moved to rooms over night due to ant's in his old room. He states he was not able to sleep but about 2 hours last night, mostly because he has a lot of nasal congestion and was finding it difficult to breathe. OBJECTIVE: VITAL SIGNS: Temperature 97.2, pulse 60, respiration rate 20, O2 sat 95% on room air, blood pressure 165/87. GENERAL: The patient is awake, alert, and oriented, in no acute distress. CARDIOVASCULAR: Regular rate and rhythm with a 2/6 systolic murmur. LUNGS: Clear to auscultation bilaterally without wheezing or rhonchi. HEENT: Nasal turbinates are hypertrophied, pale and boggy. EXTREMITIES: There is no clubbing. Lower extremity edema is 1+ bilaterally. PSYCHIATRIC: The patient displays an appropriate mood and affect. ASSESSMENT AND PLAN: 1. Generalized deconditioning: The patient is improving and ambulating with a cane. We are still pl anning on trying to discharge early next week. 2. Chronic kidney disease stage 4. We will repeat a creatinine on Monday. 3. Allergic rhinitis: We will make certain that the patient has some Mucinex and Flonase for nasal congestion. 4. Hypertension: Blood pressure is stable. Most of his blood pressures have been controlled. We w ill continue to monitor. 5. Hypothyroidism: Continue thyroid supplementation.
[2017-12-22] MEDS: Ondansetron ODT 4 MG TAB PO PRN (12:34)
[2017-12-22] MEDS: Atorvastatin Calcium 40 MG TAB PO SCH (20:19)
[2017-12-23] MEDS: Levothyroxine Sodium 50 MCG TAB PO SCH (05:26)
[2017-12-23] MEDS: cloNIDine 0.1 MG TAB PO SCH ×2 (08:28→21:03)
[2017-12-23] MEDS: hydrALAZINE 25 MG TAB PO SCH ×2 (08:29→21:03)
[2017-12-23] MEDS: Carvedilol 6.25 MG TAB PO SCH ×2 (08:29→17:34)
[2017-12-23] MEDS: Famotidine 20 MG TAB PO SCH (08:30)
[2017-12-23] MEDS: Loratadine 10 MG TAB PO PRN (08:35)
[2017-12-23] MEDS: guaiFENesin ER 600 MG TAB PO PRN (08:36)
[2017-12-23] MEDS: Fluticasone Propionate Nasal Spray 16 gm Bottle NASAL SCH (08:36)
[2017-12-23] MEDS: Atorvastatin Calcium 40 MG TAB PO SCH (21:04)
[2017-12-24] MEDS: Levothyroxine Sodium 50 MCG TAB PO SCH (06:22)
[2017-12-24] MEDS: Fluticasone Propionate Nasal Spray 16 gm Bottle NASAL SCH (07:51)
[2017-12-24] MEDS: hydrALAZINE 25 MG TAB PO SCH ×2 (07:51→20:23)
[2017-12-24] MEDS: guaiFENesin ER 600 MG TAB PO PRN ×2 (07:52→20:24)
[2017-12-24] MEDS: Carvedilol 6.25 MG TAB PO SCH ×2 (07:52→17:09)
[2017-12-24] MEDS: Famotidine 20 MG TAB PO SCH (07:53)
[2017-12-24] MEDS: Loratadine 10 MG TAB PO PRN (07:53)
[2017-12-24] MEDS: cloNIDine 0.1 MG TAB PO SCH ×2 (07:54→20:24)
--- NOTE | 2017-12-24 18:30 | PRG ---
DATE OF SERVICE: 12/24/2017 SUBJECTIVE: The patient is an 82-year-old male who is undergoing rehabilitation at [facility]. The patient has a past medical history of CKD stage IV hypertension. He states that he has rested well over the weekend and is feeling fine this morning. Nursing raises concerns that he i s not on DVT prophylaxis for which I explained the reasoning. OBJECTIVE: VITAL SIGNS: Temperature 98.2, pulse 57, respiration rate 22, O2 sat 97% on room air, and blood pres sure 170/73. GENERAL: The patient is awake, alert, and oriented, in no acute distress. CARDIOVASCULAR: Regular rate and rhythm with a 2/6 systolic murmur. LUNGS: Clear to auscultation bilaterally without wheezing or rhonchi. ABDOMEN: Soft, nontender, nondistended with bowel sounds present. EXTREMITIES: There is no clubbing. The patient does have 1+ lower extremity edema bilaterally with chronic venous stasis changes. PSYCHIATRIC: The patient displays appropriate mood and affect. ASSESSMENT AND PLAN: 1. Generalized deconditioning: The patient continues to improve his strength and we anticipate disc harge in the coming days. 2. Chronic kidney disease stage. Patient will have repeat labs in the morning. He has an appointme nt with Nephrology later this week. 3. Hypertension: The patient's blood pressure is elevated today, but most of his readings have been within in an acceptable range. We will continue clonidine in his current dose. 4. Hypothyroidism: Continue thyroid supplementation. 5. Deep venous thrombosis prophylaxis: The patient is unable to tolerate DVT prophylaxis both due t o his kidneys and his platelet count. As far as STDs or FRANCISCO samano are concerned both of these have be en tried and I cut into his legs and started to costs order so they have been discontinued. The nurs e states that he will try Brian wraps currently.
[2017-12-24] MEDS: Atorvastatin Calcium 40 MG TAB PO SCH (20:24)
[2017-12-25 05:36] LABS: #Basophils 0.1 thou/uL (0.0-0.2); #Eosinphils 0.2 thou/uL (0.0-0.7); #Lymphocytes 0.7 thou/uL (1.20-3.40); #Monocytes 0.8 thou/uL (0.11-0.59); #Neutrophils 5.8 thou/uL (1.40-6.50); %Basophils 0.9 % (0.0-1.0); %Eosinophils 2.3 % (0.0-10.0); %Lymphocytes 9.5 % (21.0-51.0); %Monocytes 10.7 % (0.0-10.0); %Neutrophils 76.6 % (42.0-75.0); Hemoglobin 9.5 g/dL (14.0-18.0); Hypochromia SLIGHT = 6-15 cells (100X) (0-5/hpf); MDiff Complete? YES; Mean Corpuscular HGB CONC 31.6 g/dL (32.0-36.0); Mean Corpuscular Hemoglobin 30.5 pg (27.0-31.0); Mean Corpuscular Volume 96.4 fL (78.0-98.0); Mean Platelet Volume 8.8 fL (7.4-10.4); PLT Morphology Comment Appears Decreased; Platelet Count 109 thou/uL (130-400); RBC Distribution Width 13.8 % (11.5-14.5); Red Blood Cell (RBC) Count 3.11 mill/uL (4.70-6.10); White Blood Cell (WBC) Count 7.5 thou/uL (4.8-10.8)
[2017-12-25 05:38] LABS: Anion Gap 14 mmol/L (10-20); BUN (Urea Nitrogen) 64 mg/dL (8.4-25.7); Calc. Creatinine Clearance 26 mL/min (70-130); Calcium 8.4 mg/dL (7.8-10.44); Carbon Dioxide 18 mmol/L (23-31); Chloride 114 mmol/L (98-107); Estimated GFR-MDRD 19; Glucose 94 mg/dL (83-110); Potassium 4.3 mmol/L (3.5-5.1); Sodium 142 mmol/L (136-145)
[2017-12-25] MEDS: Levothyroxine Sodium 50 MCG TAB PO SCH (06:02)
[2017-12-25] MEDS: Famotidine 20 MG TAB PO SCH (08:26)
[2017-12-25] MEDS: cloNIDine 0.1 MG TAB PO SCH ×2 (08:26→21:00)
[2017-12-25] MEDS: Carvedilol 6.25 MG TAB PO SCH ×2 (08:26→17:29)
[2017-12-25] MEDS: hydrALAZINE 25 MG TAB PO SCH ×2 (08:26→21:00)
[2017-12-25] MEDS: Fluticasone Propionate Nasal Spray 16 gm Bottle NASAL SCH (08:28)
[2017-12-25] MEDS: Ondansetron ODT 4 MG TAB PO PRN (13:34)
[2017-12-25] MEDS ORDERED: cloNIDine 0.1 MG TAB PO SCH (15:30)
--- NOTE | 2017-12-25 15:52 | PRG ---
DATE OF SERVICE: 12/25/2017 SUBJECTIVE: The patient is an 82-year-old male who is doing rehabilitation at [facility]. Today, he complains of constipation and states that he has not had a bowel movement in 3 days. Nursing has given him some prune juice and MiraLax approximately an hour ago, but he states he has not had a bowel movement yet. About 5 minutes after I finished seeing the patient, I got a call from the nurse stating that his blood pressure was in the 190s and his pulse was approximately 49. OBJECTIVE: VITAL SIGNS: Temperature 98.2, pulse 49, respiration rate 20, O2 sat 98% on room air, blood pressure 195/106. GENERAL: The patient is awake, alert and oriented and notes some abdominal discomfort from constipation, but is in no acute distress. CARDIOVASCULAR: The patient is mildly bradycardic with a 2/6 systolic murmur. LUNGS: Clear to auscultation bilaterally without wheezing or rhonchi. ABDOMEN: Soft, nontender to palpation with bowel sounds present. EXTREMITIES: There is no clubbing. The patient does have 1+ bilateral lower extremity pitting edema with chronic venous stasis changes. PSYCHIATRIC: The patient displays appropriate mood and affect. LABORATORY DATA: 1. CBC: WBC 7.5, hemoglobin 9.5, hematocrit 30, platelet count 109,000. 2. BMP: Sodium 142, potassium 4.3, chloride 114, bicarbonate 18, BUN 64, creatinine 3.20, glucose 94, calcium 8.4. ASSESSMENT AND PLAN: 1. Generalized deconditioning: The patient is ambulating with physical therapy with a cane and feels like he will be able to go home tomorrow and he feels safe to do so. 2. Hypertension: The patient is likely hypertensive due to his constipation and abdominal discomfort. I have ordered a 1-time dose of clonidine 0.1 mg to be given now and we will recheck his blood pressure. 3. Chronic kidney disease stage IV: The patient's creatinine increased from 2.98-3.20. This appears to be where the patient's baseline kidney function was. He has an appointment set up with Nephrology in 3 days and he will keep that. 4. Hypothyroidism: Continue thyroid supplementation. 5. Deep venous thrombosis prophylaxis: The patient is not a candidate for pharmacologic deep venous thrombosis prophylaxis due to his low platelet count and kidney disease. The patient has been unable to tolerate SCDs or FRANCISCO hose due to swelling and it causing ulcerations on his lower skin. He does have Brian wrap in place on his left lower extremity and he is tolerating that. 6. Constipation: Will add milk of magnesia to help with bowel movements if the miralax and prune juice do not work. MTDD
[2017-12-25] MEDS: Milk Of Magnesia 30 ML UDCUP PO PRN (17:35)
[2017-12-25] MEDS: guaiFENesin ER 600 MG TAB PO PRN (18:27)
[2017-12-25] MEDS: Loratadine 10 MG TAB PO PRN (18:27)
[2017-12-25] MEDS ORDERED: Furosemide 40 MG TAB PO SCH (18:30)
[2017-12-25] MEDS: Atorvastatin Calcium 40 MG TAB PO SCH (21:00)
[2017-12-26] MEDS: Milk Of Magnesia 30 ML UDCUP PO PRN (06:06)
[2017-12-26] MEDS: Levothyroxine Sodium 50 MCG TAB PO SCH (06:06)
[2017-12-26 07:13] VITALS: TEMP 97.5
[2017-12-26] MEDS ORDERED: Carvedilol 6.25 MG TAB PO SCH (08:00)
[2017-12-26] MEDS: cloNIDine 0.1 MG TAB PO SCH (08:17)
[2017-12-26] MEDS: Famotidine 20 MG TAB PO SCH (08:18)
[2017-12-26] MEDS: hydrALAZINE 25 MG TAB PO SCH (08:18)
[2017-12-26] MEDS: Fluticasone Propionate Nasal Spray 16 gm Bottle NASAL SCH (08:20)
[2017-12-26 10:48] VITALS: BP 124/58
[2017-12-26 13:10] LABS: Anion Gap 13 mmol/L (10-20); BUN (Urea Nitrogen) 65 mg/dL (8.4-25.7); Calc. Creatinine Clearance 27 mL/min (70-130); Calcium 8.3 mg/dL (7.8-10.44); Carbon Dioxide 19 mmol/L (23-31); Chloride 111 mmol/L (98-107); Estimated GFR-MDRD 19; Glucose 92 mg/dL (83-110); Potassium 4.3 mmol/L (3.5-5.1); Sodium 139 mmol/L (136-145)
--- NOTE | 2017-12-26 14:06 | DIS ---
DATE OF ADMISSION: 12/06/2017 DATE OF DISCHARGE: 12/26/2017 DISCHARGE DIAGNOSES: 1. Generalized deconditioning. 2. Chronic kidney disease stage 4. 3. Hypertension. 4. History of congestive heart failure. 5. Hypothyroidism. 6. Constipation, resolved. HOSPITAL COURSE: The patient is an 82-year-old male who was admitted to [facility] after a hospital stay at [facility] in [place]. The patient's first hospitalization was due to chest pain and then he was noted to have an increased creatinine and was being monitored there. He spent approximately a week in the hospital and became weak and was transferred here for further ph ysical therapy. The patient worked with PT and OT. He is now able to ambulate with a cane and feels comfortable going home. During the course of the hospitalization, the patient's blood pressure medi cations were titrated. The patient is now on clonidine, hydralazine and carvedilol. The patient's r esting heart rate is in the 50s and he has been able to tolerate that without any dizziness. We will continue this. The patient's last creatinine was 3.20 with a GFR of 19. We are continuing to try t o limit nephrotoxic agents going forward. Today on the day of discharge, the patient went and saw va s engineering design supervisor, Dr. Mitchell, who has ordered additional lab testing is getting this done today prior to leaving. He has a followup appointment scheduled with him in the coming weeks. He also has a Podiat ry appointment set up for tomorrow with Dr. Amelie Hennessy here in [place] for trimming of his toenail s and to look at an ingrown toenail. The patient had some issues with constipation during the course of the hospitalization, but these resolved with prune juice and MiraLax. He had several doses of La six given for chronic lower extremity edema and currently his lower extremities have 1+ pitting edema bilaterally and this is at his baseline. We will continue to only give Lasix as needed on discharge . The patient is feeling well today. Breathing is normal and he is excited to be going home. DISCHARGE MEDICATIONS: 1. Aspirin 81 mg p.o. daily. 2. Lipitor 40 mg p.o. at bedtime. 3. Carvedilol 6.25 mg p.o. b.i.d. 4. Clonidine 0.1 mg p.o. b.i.d. 5. Famotidine 20 mg p.o. daily. 6. Mucinex 600 mg p.o. b.i.d. p.r.n. congestion. 7. Hydralazine 100 mg p.o. b.i.d. 8. Levothyroxine 175 mcg p.o. q.a.m. 9. Nitroglycerin 0.4 mg sublingual every 5 minutes as needed for chest pain. DISPOSITION: 1. The patient will be discharged home in stable condition. 2. The patient will be ambulating with a cane. 3. Home health with [facility] has been set up and he will have PT and OT. 4. The patient has followup appointment set up with Podiatry tomorrow morning at approximately 9:30. 5. The patient will schedule follow up with me in 1 week. Approximately 32 minutes were spent coordinating the patient's discharge and discussing this with his specialists.
[2017-12-26 22:44] LABS: Iron 32 ug/dL (65-175); Iron 35 ug/dL (65-175); Iron Binding Capacity, Total 210 mcg/dL (261-462); Iron Binding Capacity, Total 213 mcg/dL (261-462)
== END 2017-12-26 13:37 | disposition home health service (06) | DRG 948 ==
LOC: NAV ACUTE 17:30
PROVIDERS: ADMIT Family Medicine; ATTEND Family Medicine
DX: R53.1 Weakness (principal); N18.4 Chronic kidney disease, stage 4 (severe); I13.0 Hypertensive heart and chronic kidney disease with heart failure and stage 1 through stage 4 chronic kidney disease, or unspecified chronic kidney disease; I25.2 Old myocardial infarction; Z86.73 Personal history of transient ischemic attack (TIA), and cerebral infarction without residual deficits; E78.5 Hyperlipidemia, unspecified; E03.9 Hypothyroidism, unspecified; Z85.828 Personal history of other malignant neoplasm of skin; Z87.891 Personal history of nicotine dependence; I49.9 Cardiac arrhythmia, unspecified; K59.00 Constipation, unspecified; J30.9 Allergic rhinitis, unspecified; D63.1 Anemia in chronic kidney disease; B35.1 Tinea unguium; I50.9 Heart failure, unspecified
CPT/HCPCS: 36415; 80048; 82728; 83540; 83550; 85014; 85018; 85025; G8987-GO-CK; G8988-GO-CI; Q0162

== ENCOUNTER 2018-01-11 16:22 | Emergency (ER) | payer MEDICARE, MEDICAID ==
[2018-01-11 17:06] LABS: #Eosinphils 0.2 thou/uL (0.0-0.7); #Lymphocytes 0.8 thou/uL (1.20-3.40); #Monocytes 0.8 thou/uL (0.11-0.59); #Neutrophils 5.8 thou/uL (1.40-6.50); %Basophils 0.5 % (0.0-1.0); %Eosinophils 2.1 % (0.0-10.0); %Lymphocytes 10.1 % (21.0-51.0); %Monocytes 10.1 % (0.0-10.0); %Neutrophils 77.2 % (42.0-75.0); Hemoglobin 10.6 g/dL (14.0-18.0); Mean Corpuscular HGB CONC 31.2 g/dL (32.0-36.0); Mean Corpuscular Hemoglobin 30.1 pg (27.0-31.0); Mean Corpuscular Volume 96.3 fL (78.0-98.0); Mean Platelet Volume 8.4 fL (7.4-10.4); Platelet Count 128 thou/uL (130-400); RBC Distribution Width 13.5 % (11.5-14.5); Red Blood Cell (RBC) Count 3.52 mill/uL (4.70-6.10); White Blood Cell (WBC) Count 7.5 thou/uL (4.8-10.8)
[2018-01-11 17:22] LABS: ALT (SGPT) 21 U/L (8-55); AST (SGOT) 17 U/L (5-34); Albumin 3.6 g/dL (3.4-4.8); Alkaline Phosphatase 73 U/L (40-150); Anion Gap 16 mmol/L (10-20); BUN (Urea Nitrogen) 45 mg/dL (8.4-25.7); Bilirubin, Total 0.6 mg/dL (0.2-1.2); CK (CPK) 30 U/L (30-200); Calc. Creatinine Clearance 0 mL/min (70-130); Calcium 8.4 mg/dL (7.8-10.44); Carbon Dioxide 19 mmol/L (23-31); Chloride 107 mmol/L (98-107); Estimated GFR-MDRD 21; Globulin 2.8 g/dL (2.4-3.5); Glucose 104 mg/dL (83-110); Lipase 36 U/L (8-78); Potassium 4.7 mmol/L (3.5-5.1); Protein, Total 6.4 g/dL (5.8-8.1); Sodium 137 mmol/L (136-145); Troponin I Less than 0.010 ng/mL (< 0.028)
--- NOTE | 2018-01-11 17:23 | RAD ---
CHEST ONE VIEW: 01/11/18 HISTORY: Chest pain. COMPARISON: 11/29/17. FINDINGS: The cardiac silhouette remains magnified and enlarged. Pulmonary vasculature is slightly engorged. Me diastinum midline. No lobar consolidation or evidence of pneumothorax. IMPRESSION: Cardiomegaly with mild pulmonary vascular congestion. Findings are stable compared to previous study. POS: [facility]
== END 2018-01-11 18:03 | disposition short-term general hospital (02) ==
LOC: NAV ERS 16:22
DX: R07.2 Precordial pain (principal); I25.10 Atherosclerotic heart disease of native coronary artery without angina pectoris; I25.2 Old myocardial infarction; I48.91 Unspecified atrial fibrillation; E03.9 Hypothyroidism, unspecified; K21.9 Gastro-esophageal reflux disease without esophagitis; Z86.73 Personal history of transient ischemic attack (TIA), and cerebral infarction without residual deficits; I13.2 Hypertensive heart and chronic kidney disease with heart failure and with stage 5 chronic kidney disease, or end stage renal disease; N18.6 End stage renal disease; I50.9 Heart failure, unspecified; Z87.891 Personal history of nicotine dependence
CPT/HCPCS: 71045; 80053; 82553; 83690; 83880; 84484; 85025; 93005

== ENCOUNTER 2018-01-30 15:55 | Emergency (ER) | payer MEDICARE, MEDICAID ==
[2018-01-30 16:30] LABS: #Eosinphils 0.2 thou/uL (0.0-0.7); #Lymphocytes 0.9 thou/uL (1.20-3.40); #Monocytes 0.8 thou/uL (0.11-0.59); #Neutrophils 7.2 thou/uL (1.40-6.50); %Basophils 0.5 % (0.0-1.0); %Eosinophils 2.1 % (0.0-10.0); %Lymphocytes 9.5 % (21.0-51.0); %Monocytes 8.8 % (0.0-10.0); %Neutrophils 79.1 % (42.0-75.0); Hemoglobin 10.6 g/dL (14.0-18.0); Mean Corpuscular HGB CONC 31.9 g/dL (32.0-36.0); Mean Corpuscular Hemoglobin 31.2 pg (27.0-31.0); Mean Corpuscular Volume 97.8 fL (78.0-98.0); Mean Platelet Volume 7.5 fL (7.4-10.4); Platelet Count 157 thou/uL (130-400); RBC Distribution Width 12.6 % (11.5-14.5); White Blood Cell (WBC) Count 9.2 thou/uL (4.8-10.8)
--- NOTE | 2018-01-30 16:37 | RAD ---
PA AND LATERAL CHEST: Date: 01/30/18 INDICATION: Chest pain. COMPARISON: Prior exam dated 01/11/18. FINDINGS: There is cardiomegaly with pulmonary vascular congestion and perihilar air space opacities suspicious for edema. There are small bilateral pleural effusions. IMPRESSION: Findings suspicious for mild CHF. POS: [facility]
[2018-01-30 16:44] LABS: ALT (SGPT) 65 U/L (8-55); AST (SGOT) 56 U/L (5-34); Albumin 3.6 g/dL (3.4-4.8); Alkaline Phosphatase 104 U/L (40-150); Anion Gap 15 mmol/L (10-20); BUN (Urea Nitrogen) 47 mg/dL (8.4-25.7); Bilirubin, Total 0.6 mg/dL (0.2-1.2); CK (CPK) 28 U/L (30-200); Calc. Creatinine Clearance 0 mL/min (70-130); Calcium 8.3 mg/dL (7.8-10.44); Carbon Dioxide 21 mmol/L (23-31); Chloride 104 mmol/L (98-107); Estimated GFR-MDRD 19; Globulin 2.8 g/dL (2.4-3.5); Glucose 96 mg/dL (83-110); Potassium 4.1 mmol/L (3.5-5.1); Protein, Total 6.4 g/dL (5.8-8.1); Sodium 136 mmol/L (136-145)
[2018-01-30 16:46] LABS: CKMB 0.7 ng/mL (0-6.6); Troponin I 0.016 ng/mL (< 0.028)
[2018-01-30] MEDS ORDERED: Nitroglycerin 0.4 MG TAB (25 Tab Bottle) ONE (18:07)
[2018-01-30 19:05] LABS: Troponin I 0.012 ng/mL (< 0.028)
== END 2018-01-30 18:47 | disposition short-term general hospital (02) ==
LOC: NAV ERS 15:55
DX: I20.0 Unstable angina (principal); I25.10 Atherosclerotic heart disease of native coronary artery without angina pectoris; I25.2 Old myocardial infarction; E03.9 Hypothyroidism, unspecified; K21.9 Gastro-esophageal reflux disease without esophagitis; E78.5 Hyperlipidemia, unspecified; I13.2 Hypertensive heart and chronic kidney disease with heart failure and with stage 5 chronic kidney disease, or end stage renal disease; I50.9 Heart failure, unspecified; N18.6 End stage renal disease; Z86.73 Personal history of transient ischemic attack (TIA), and cerebral infarction without residual deficits; Z87.891 Personal history of nicotine dependence; Z79.899 Other long term (current) drug therapy; Z79.82 Long term (current) use of aspirin
CPT/HCPCS: 71046; 80053; 82550; 82553; 83880; 84484; 85025; 93005

== ENCOUNTER 2018-05-26 11:03 | Emergency (ER) | payer MEDICARE, OTHER | END 2018-05-26 12:23 | disposition home or self-care (01) | LOC: NAV ERS 11:03 | DX: J20.9 Acute bronchitis, unspecified (principal); J06.9 Acute upper respiratory infection, unspecified; I25.10 Atherosclerotic heart disease of native coronary artery without angina pectoris; I48.91 Unspecified atrial fibrillation; E03.9 Hypothyroidism, unspecified; E78.5 Hyperlipidemia, unspecified; K21.9 Gastro-esophageal reflux disease without esophagitis; I11.0 Hypertensive heart disease with heart failure; I50.9 Heart failure, unspecified; Z87.891 Personal history of nicotine dependence; Z86.73 Personal history of transient ischemic attack (TIA), and cerebral infarction without residual deficits; Z79.82 Long term (current) use of aspirin; Z79.899 Other long term (current) drug therapy | CPT/HCPCS: 87081; 87430; 99283 ==

== ENCOUNTER 2018-06-04 13:00 | Emergency (ER) | payer MEDICARE, MEDICAID ==
[2018-06-04 13:47] LABS: #Eosinphils 0.2 thou/uL (0.0-0.7); #Lymphocytes 0.8 thou/uL (1.20-3.40); #Monocytes 0.6 thou/uL (0.11-0.59); #Neutrophils 4.4 thou/uL (1.40-6.50); %Basophils 0.5 % (0.0-1.0); %Eosinophils 2.8 % (0.0-10.0); %Lymphocytes 12.9 % (21.0-51.0); %Monocytes 10.3 % (0.0-10.0); %Neutrophils 73.6 % (42.0-75.0); Hemoglobin 10.1 g/dL (14.0-18.0); Mean Corpuscular HGB CONC 31.5 g/dL (32.0-36.0); Mean Corpuscular Hemoglobin 30.1 pg (27.0-31.0); Mean Corpuscular Volume 95.5 fL (78.0-98.0); Mean Platelet Volume 6.9 fL (7.4-10.4); Platelet Count 134 thou/uL (130-400); RBC Distribution Width 13.4 % (11.5-14.5); Red Blood Cell (RBC) Count 3.36 mill/uL (4.70-6.10)
[2018-06-04 13:58] LABS: Base Excess-Venous 1.9 mmol/L (0 (+/- 2.5)); Bicarbonate (HCO3v) 24.9 mmol/L (22.0-29.0); CO2 Tension (PvCO2) 32.3 mmHg (41.0-51.0); O2 Tension (PvO2) 110.1 mmHg (35.0-45.0); pH (Venous) 7.495 (7.35-7.45)
[2018-06-04 13:59] LABS: Calcium, Ionized 1.02 mmol/L (1.12-1.32); Hemoglobin - Calc 10.4 g/dL (12.0-18.0); Potassium 3.8 mmol/L (3.4-4.7); T. Carbon Dioxide 25.9 mmol/L (1.0-85.0); vO2 Saturation-calc 98.8 % (94-98)
[2018-06-04 14:09] LABS: ALT (SGPT) 14 U/L (8-55); AST (SGOT) 20 U/L (5-34); Albumin 3.7 g/dL (3.4-4.8); Alkaline Phosphatase 74 U/L (40-150); Anion Gap 16 mmol/L (10-20); BUN (Urea Nitrogen) 40 mg/dL (8.4-25.7); Bilirubin, Total 0.6 mg/dL (0.2-1.2); Calc. Creatinine Clearance 0 mL/min (70-130); Calcium 8.7 mg/dL (7.8-10.44); Carbon Dioxide 23 mmol/L (23-31); Chloride 102 mmol/L (98-107); Estimated GFR-MDRD 19; Globulin 2.9 g/dL (2.4-3.5); Glucose 92 mg/dL (83-110); Protein, Total 6.6 g/dL (5.8-8.1); Sodium 137 mmol/L (136-145)
[2018-06-04] MEDS ORDERED: predniSONE 20 MG TAB ONE (14:32)
[2018-06-04] MEDS ORDERED: Azithromycin 250 MG TAB ONE (14:32)
--- NOTE | 2018-06-04 14:53 | RAD ---
PORTABLE CHEST 1 VIEW: Date: 06/04/18 Time: 1320 hours HISTORY: Dyspnea. FINDINGS/IMPRESSION: Comparison made with exam of 01/30/18. The heart size is enlarged. The lungs are well expanded. There is consolidation/atelectatic change in the left lung base. No pneumothoraces or large effusions are seen. There is no evidence of melissa pul monary edema. POS: [facility]
== END 2018-06-04 15:03 | disposition home or self-care (01) ==
LOC: NAV ERS 13:00
DX: J06.9 Acute upper respiratory infection, unspecified (principal); I25.10 Atherosclerotic heart disease of native coronary artery without angina pectoris; I25.2 Old myocardial infarction; I48.91 Unspecified atrial fibrillation; E03.9 Hypothyroidism, unspecified; K21.9 Gastro-esophageal reflux disease without esophagitis; E78.5 Hyperlipidemia, unspecified; Z86.73 Personal history of transient ischemic attack (TIA), and cerebral infarction without residual deficits; I13.2 Hypertensive heart and chronic kidney disease with heart failure and with stage 5 chronic kidney disease, or end stage renal disease; N18.6 End stage renal disease; I50.9 Heart failure, unspecified; Z87.891 Personal history of nicotine dependence; Z79.82 Long term (current) use of aspirin; Z79.899 Other long term (current) drug therapy
CPT/HCPCS: 71045; 80053; 82330; 82435; 82803; 84132; 84295; 84484; 85014; 85025; 87804; 93005; 94760; J7506